=== PATIENT | male | born 1950 | race Caucasian/White ===

== ENCOUNTER → 2017-09-23 | Outpatient (REF) | payer MEDICARE, OTHER ==
[2017-09-23 15:05] LABS: HEPATITIS C VIRUS ABY INDEX < 0.0 INDEX (<0.8)
== END ==
LOC: M LAB REF 13:15
DX: Z11.59 Encounter for screening for other viral diseases (principal)
CPT/HCPCS: 86803

== ENCOUNTER 2017-12-06 12:44 | Day surgery (SDC) | payer MEDICARE, OTHER ==
[2017-12-06] MEDS ORDERED: ROPIvacaine 0.5% 30 ML INJECTION (J2795 PER 1MG) (12:45)
[2017-12-06] MEDS ORDERED: LIDOCAINE 1% MDV 20ML VIAL (12:45)
[2017-12-06] MEDS ORDERED: dexameTHASONE 10 MG/1 ML VIAL PRES.FREE (J1100) (12:45)
[2017-12-06] MEDS: LR 1,000 ML IV (13:14)
[2017-12-06] MEDS ORDERED: PROPOFOL 200 MG/20 ML VIAL As Ordered ×2 (13:18→18:33)
[2017-12-06] MEDS ORDERED: ROCURONIUM BROMIDE 50 MG/5 ML VIAL As Ordered (13:18)
[2017-12-06] MEDS ORDERED: LIDOCAINE 2% INJ 100 MG/5 ML SDV (FOR ANES.) As Ordered (13:18)
[2017-12-06] MEDS ORDERED: fentaNYL 100 MCG/2 ML INJECTION (J3010) As Ordered ×2 (13:53→15:51)
[2017-12-06] MEDS ORDERED: MIDAZOLAM INJ 2 MG/2 ML VIAL (J2250) As Ordered (13:53)
[2017-12-06] MEDS: VANCOMYCIN HCL 1,000 MG, VIAL MATE ADAPTER 1 EACH in D5W 250 ML IV (14:01)
[2017-12-06] MEDS: MIDAZOLAM INJ 2 MG/2 ML VIAL (J2250) IV (14:49)
[2017-12-06] MEDS: fentaNYL 100 MCG/2 ML INJECTION (J3010) IV (14:49)
[2017-12-06] MEDS ORDERED: ePHEDrine SULFATE 25 MG/5 ML(5MG/ML) SYRINGE As Ordered (16:19)
[2017-12-06] MEDS ORDERED: METOCLOPRAMIDE INJ 10MG/2ML VIAL (J2765) As Ordered (16:20)
[2017-12-06] MEDS ORDERED: GLYCOPYRROLATE INJ 0.2 MG/ML 2 ML VIAL As Ordered ×2 (16:32→16:52)
[2017-12-06] MEDS ORDERED: PHENYLephrine HCL 500 MCG/5 ML (100MCG/ML) SYRINGE (J2370) As Ordered (16:41)
[2017-12-06] MEDS ORDERED: PHENYLEPHRINE INJ 10MG/ML VIAL (J2370) As Ordered (16:45)
[2017-12-06] MEDS ORDERED: ONDANSETRON 4MG/2ML VIAL (J2405) As Ordered (16:52)
[2017-12-06] MEDS ORDERED: NEOSTIGMINE 10 MG/10 ML VIAL (J2710) As Ordered ×2 (16:52)
[2017-12-06] MEDS: EPINEPHrine 1MG/ML INJ 30ML MD-VIAL As Ordered (17:59)
[2017-12-06] MEDS: LIDOCAINE 1% SDV INJ 30 ML VIAL As Ordered (18:00)
[2017-12-06] MEDS ORDERED: fentaNYL 100 MCG/2 ML INJECTION (J3010) IV (19:15)
[2017-12-06] MEDS ORDERED: HYDROmorphone HCL 1 MG/ML SYRINGE (J1170) IV (19:15)
[2017-12-06] MEDS ORDERED: LR 1,000 ML IV ×2 (19:15→19:30)
[2017-12-06] MEDS ORDERED: ONDANSETRON 4MG/2ML VIAL (J2405) IV (19:15)
[2017-12-06] MEDS: PERCOCET 5MG/325MG TAB PO ×2 (19:30→20:04)
== END 2017-12-06 21:08 | disposition home or self-care (01) ==
LOC: M SDC 12:44
DX: M75.101 Unspecified rotator cuff tear or rupture of right shoulder, not specified as traumatic (principal); M19.011 Primary osteoarthritis, right shoulder; S43.431A Superior glenoid labrum lesion of right shoulder, initial encounter; I10 Essential (primary) hypertension; E78.00 Pure hypercholesterolemia, unspecified; M48.061 Spinal stenosis, lumbar region without neurogenic claudication; M54.2 Cervicalgia; Z88.0 Allergy status to penicillin; Z88.5 Allergy status to narcotic agent; Z79.82 Long term (current) use of aspirin; Z79.899 Other long term (current) drug therapy
CPT/HCPCS: 29827

== ENCOUNTER 2018-07-27 07:43 | Day surgery (SDC) | payer MEDICARE, OTHER ==
[~2018-07-27] VITALS: Ht 177.8 cm; Wt 99.8 kg
[~2018-07-27 07:43] MED LIST: /WARF25TA OR; ACET65TA OR; ALEV220T26 PO; ALEVE PO; AMIT25TA2 OR; AMIT50TA PO; ASPI1TAB PO; ASPI81TA83 OR; ATOR1TAB21 PO; CALCIUM CITRATE PO; COLA100C2 OR; FERR325T OR; FISH1200 PO; FISH500C OR; LISI-538 PO; LISI10TA4 PO; MULT1TAB10 PO; MULTIVIT PO; NS 1,000 ML IV ONE; OXYC10TA97 OR; PERC7.5T8 OR; SENO8.6T5 OR; TRAM50TA2 OR; TRAM50TA2 PO; VICODINES TAB OR
[2018-07-27] MEDS ORDERED: PROPOFOL 200 MG/20 ML VIAL As Ordered ONE (07:46)
--- NOTE | 2018-07-27 08:49 | ROOR ---
Patient Name: Joleen James Procedure Date: 07/27/2018 8:29 AM Date of : 1950 Age: 68 Room: [facility] Gender: Male Note Status: Finalized Procedure: Colonoscopy Indications: High risk colon cancer surveillance: Personal history of colonic polyps, Last colonoscopy: May 2012 Providers: Jarred LEI MD Referring MD: Josiah Velasquez MD Requesting Provider: Medicines: Monitored Anesthesia Care Complications: No immediate complications. Procedure: Pre-Anesthesia Assessment: - The heart rate, respiratory rate, oxygen saturations, blood pressure, adequacy of pulmonary ventilation, and response to care were monitored throughout the procedure. The Colonoscope was introduced through the anus and advanced to the terminal ileum, with identification of the appendiceal orifice and IC valve. The colonoscopy was performed without difficulty. The patient tolerated the procedure well. The quality of the bowel preparation was good. Findings: The perianal and digital rectal examinations were normal. Two flat polyps were found in the hepatic flexure and ascending colon. The polyps were 5 to 9 mm in size. These polyps were removed with a cold snare. Resection and retrieval were complete. Internal hemorrhoids were found during retroflexion. The hemorrhoids were moderate. The exam was otherwise without abnormality on direct and retroflexion views. Retroflexion in the right colon was performed. Impression: - Two 5 to 9 mm polyps at the hepatic flexure and in the ascending colon, removed with a cold snare. Resected and retrieved. - Internal hemorrhoids. - The examination was otherwise normal on direct and retroflexion views. Recommendation: - Repeat colonoscopy in 5 years for adenoma surveillance. Jarred Lei MD Jarred LEI MD 07/27/2018 8:49:06 AM This report has been signed electronically. Number of Addenda: 0 Note Initiated On: 07/27/2018 8:29 AM Estimated Blood Loss: Estimated blood loss: none.
[2018-07-27 09:15] VITALS: BP 133/83
== END 2018-07-27 09:25 | disposition home or self-care (01) ==
LOC: M OPP 07:43
PROVIDERS: ATTEND Internal Medicine Gastroenterology
DX: D12.2 Benign neoplasm of ascending colon (principal); D12.3 Benign neoplasm of transverse colon; K64.8 Other hemorrhoids; Z86.010 Personal history of colon polyps

== ENCOUNTER → 2018-11-23 | Outpatient (REF) | payer MEDICARE, OTHER ==
[~2018-11-23] MED LIST changes: -/WARF25TA OR; -ASPI1TAB PO; +ASPI81TA26 PO; +COUM1TAB18 OR; -NS 1,000 ML IV ONE
[2018-11-23 12:47] LABS: BLOOD UREA NITROGEN 19 MG/DL (7-18); CREATININE FOR GFR 1.03 MG/DL (0.70-1.30); GLOMERULAR FILTRATION RATE > 60.0 (>42)
== END ==
LOC: M LABDRAW1 11:45
PROVIDERS: ATTEND Orthopaedic Surgery
DX: Z01.812 Encounter for preprocedural laboratory examination (principal)

== ENCOUNTER 2019-05-03 11:34 | Day surgery (SDC) | payer MEDICARE, OTHER ==
[~2019-05-03] VITALS: Ht 177.8 cm; Wt 98.9 kg
[~2019-05-03 11:34] MED LIST changes: +LIDOCAINE 1% MDV 20ML VIAL SQ PRN; +MULTCAP PO; +NAPR220C24 PO
[2019-05-03] MEDS ORDERED: LIDOCAINE 1% MDV 20ML VIAL ONE (11:35)
[2019-05-03] MEDS ORDERED: ROPIvacaine 0.5% 30 ML INJECTION (J2795 PER 1MG) ONE (11:35)
[2019-05-03] MEDS ORDERED: EPINEPHrine INJ 1 MG/ML 1ML VIAL ONE (11:35)
[2019-05-03] MEDS ORDERED: dexameTHASONE 10 MG/1 ML VIAL PRES.FREE (J1100) ONE (11:35)
[2019-05-03] MEDS ORDERED: LR 1,000 ML IV ONE (12:00)
[2019-05-03] MEDS ORDERED: ceFAZolin SOD 2 GM in IV 1 EA IV ONE (12:00)
[2019-05-03] MEDS ORDERED: fentaNYL 100 MCG/2 ML INJECTION (J3010) As Ordered ONE ×2 (13:26→15:25)
[2019-05-03] MEDS ORDERED: MIDAZOLAM INJ 2 MG/2 ML VIAL (J2250) As Ordered ONE ×2 (13:26→15:25)
[2019-05-03] MEDS ORDERED: fentaNYL 100 MCG/2 ML INJECTION (J3010) IV ONE (14:15)
[2019-05-03] MEDS ORDERED: MIDAZOLAM INJ 2 MG/2 ML VIAL (J2250) IV ONE (14:15)
[2019-05-03] MEDS ORDERED: EPINEPHrine 1MG/ML INJ 30ML MD-VIAL As Ordered ONE (14:44)
[2019-05-03] MEDS ORDERED: LIDOCAINE 1% SDV INJ 30 ML VIAL As Ordered ONE (14:45)
[2019-05-03] MEDS ORDERED: propofoL 200 MG/20 ML VIAL As Ordered ONE (15:25)
[2019-05-03] MEDS ORDERED: ROCURONIUM BROMIDE 50 MG/5 ML VIAL As Ordered ONE (15:25)
[2019-05-03] MEDS ORDERED: LIDOCAINE 2% INJ 100 MG/5 ML SDV (FOR ANES.) As Ordered ONE (15:25)
[2019-05-03] MEDS ORDERED: dexameTHASONE 4 MG/ML 1ML VIAL (J1100) As Ordered ONE (15:29)
[2019-05-03] MEDS ORDERED: ONDANSETRON 4MG/2ML VIAL (J2405) As Ordered ONE (15:59)
[2019-05-03] MEDS ORDERED: SUGAMMADEX SODIUM 500 MG/5 ML VIAL (BRIDION) As Ordered ONE (16:08)
[2019-05-03] MEDS ORDERED: LR 1,000 ML IV SCH (17:00)
[2019-05-03] MEDS ORDERED: ONDANSETRON 4MG/2ML VIAL (J2405) IV PRN (17:00)
[2019-05-03] MEDS ORDERED: fentaNYL 100 MCG/2 ML INJECTION (J3010) IV PRN (17:00)
[2019-05-03] MEDS ORDERED: hydrALAZINE INJ 20 MG/ML VIAL IV PRN (17:00)
[2019-05-03] MEDS ORDERED: LABETALOL HCL 100 MG/20 ML VIAL IV PRN (17:00)
[2019-05-03] MEDS ORDERED: oxyCODONE 5MG TAB PO PRN (17:00)
[2019-05-03 18:09] VITALS: BP 167/78
--- NOTE | 2019-05-04 07:47 | RO ---
DATE OF PROCEDURE: 05/03/2019 PREOPERATIVE DIAGNOSIS: 1. Right shoulder partial thickness subscapularis tear. POSTOPERATIVE DIAGNOSIS: 1. Right shoulder partial thickness subscapularis tear. 2. Right shoulder labral tear. PROCEDURE: 1. Right shoulder arthroscopic rotator cuff repair (subscapularis). 2. Right shoulder arthroscopic labral debridement. SURGEON: Dr. Issac Duffy [employer] REPRESENTATIVE: ENRIQUE Jones ANESTHESIA: General with preoperative nerve block. IV FLUIDS: Lactated Ringer's. ESTIMATED BLOOD LOSS: 5 mL. IMPLANTS: Arthrex 4.75 mm Peak SwiveLock anchor times one. CLOSURE: Nylon. PROCEDURE: Patient identified in preoperative holding area. The right shoulder was marked by myself. He had an interscalene nerve block by anesthesia. He is brought to the operating room, placed supine on a well-padded operating room (OR) table. After induction general anesthesia and examination revealed 170 degrees of forward flexion 80 of external rotation with his arm at his side and no increased anterior-posterior translation. The patient was then placed into the left side down lateral decubitus position with an axillary roll and all bony prominences well padded. The right arm was placed into the Arthrex star sleeve lateral decubitus traction shanks 10 pounds of traction. He was secured the OR table. He had bilateral Venodyne boots for deep venous thrombosis (DVT) prophylaxis. He received appropriate IV antibiotics within 1 hour of incision. The right shoulder was then prepped and draped in a normal sterile fashion with Chloraprep. Prior to incision time-out performed per hospital protocol. Alex Solis was present for the entire procedure and participated in all essential portions of the procedure. This included patient positioning and draping, holding arthroscope, retrieving sutures, using the mallet to help create a socket for the anchor, performing the wound closure and applying dressing and sling. The right shoulder was insufflated with lactated Ringer's. A standard posterior viewing portal made with 11-blade. 30 degrees arthroscope was introduced into the joint. 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 Overall chondral surfaces were in great condition. The posterior rotator cuff was intact. The site of the prior supraspinatus repair appeared fully intact with no areas of free tearing. No sutures were visible. On first glance the subscapularis appeared intact but after performing the posterior lever push maneuver the entire subscapularis lifted off from the lesser tuberosity consistent with fairly high-grade upper border tear. The patient had already had a tenotomy of his biceps with a tenodesis. There was labral tearing of the anterior superior labrum so that was debrided with the shaver via an anterior working portal. I created an accessory superolateral portal and then used the shaver to clear soft tissue off the lesser tuberosity and then on the bur setting to gently decorticate create a bleeding surface to improve healing. I then used the scorpion to pass fiber tape through the upper one third of the subscapularis tendon. Those sutures were retrieved out the original anterior portal, loaded through 4.75 mm Peak SwiveLock anchor and then an awl was used to create a socket lesser tuberosity. The anchor was docked, sutures tensioned, anchor malleted and then inserted by hand with excellent fixation. This nicely restored the subscapularis to the lesser tuberosity. There was no lift off. After the sutures were cut with the arthroscopic round cutter operator the repair site was probed with a switching stick and there was a nice secure repair. The shoulder was irrigated. The scope was placed into the subacromial space, a lateral working portal established and bursectomy performed. There was some fraying of the bursal surface of the supraspinatus, a gentle debridement with the shaver was performed. I palpated the entire supraspinatus with a switching stick did not feel that there are any areas of moderate or high-grade tearing and gently internally and externally rotated the arm. There is no lift off or buckling. No loose suture was visible. Some adhesions were released with the radiofrequency cautery between the anterior acromion and the supraspinatus tendon. There was no recurrent impingement. The shoulder was then irrigated and drained. Portals closed with nylon suture. Bulky sterile dressing applied. He was then carefully placed into his R-2 sling and extubated, transferred to post-anesthesia care unit (PACU) in stable condition. All counts were correct times two. COMPLICATIONS: None.
== END 2019-05-03 18:10 | disposition home or self-care (01) ==
LOC: M SDC 11:34
PROVIDERS: ATTEND Orthopaedic Surgery
DX: M75.111 Incomplete rotator cuff tear or rupture of right shoulder, not specified as traumatic (principal); S43.431A Superior glenoid labrum lesion of right shoulder, initial encounter; Y92.89 Other specified places as the place of occurrence of the external cause; I10 Essential (primary) hypertension; E78.5 Hyperlipidemia, unspecified; E73.9 Lactose intolerance, unspecified; Z79.82 Long term (current) use of aspirin; Z79.899 Other long term (current) drug therapy; Z88.0 Allergy status to penicillin; Z88.5 Allergy status to narcotic agent; Y93.9 Activity, unspecified
CPT/HCPCS: 29822; 29827; C1713; J0690; J1100; J2250; J2405; J2795; J3010

== ENCOUNTER → 2021-05-14 | Outpatient (CLI) | payer MEDICARE, OTHER ==
[~2021-05-14] MED LIST changes: -LIDOCAINE 1% MDV 20ML VIAL SQ PRN; -LISI-538 PO; +LISI10TA22 PO; -LISI10TA4 PO; +LISI20TA33 PO
--- NOTE | 2021-05-17 15:12 | HOLTMON ---
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 Artifact duration 2 hours 24 minutes 29 seconds. Predominantly sinus rhythm with heart rates ranging from 48-129 bpm; average 76 bpm. No atrial fibrillation observed. Infrequent PACs including rare atrial couplets and rare atrial trigeminy and one nonsustained atrial run (4 beats, 112 bpm). Occasional PVCs including 35 couplets and 1 ventricular bigeminy run. No RR intervals greater than 2.0 seconds. No symptoms recorded. Electronically Signed on 05-17-2021 15:12:29 EDT by Jarred Kearns
== END ==
LOC: M EKG 11:46
PROVIDERS: ATTEND Family Medicine
DX: R94.31 Abnormal electrocardiogram [ECG] [EKG] (principal)

== ENCOUNTER → 2022-01-18 | Outpatient (REF) | payer MEDICARE, OTHER ==
[2022-01-19 12:48] LABS: BASO # 0.2 10^3/uL (0.0-0.2); BASO % 2.5 % (0.0-1.0); EOS % 13.6 % (0.0-3.0); HEMATOCRIT 33.8 % (42.0-52.0); HEMOGLOBIN 10.5 g/dl (13.5-17.5); LYMPH # 1.7 10^3/uL (1.5-5.0); MEAN CORPUSCULAR HEMOGLOBIN 30.1 pg (27.0-33.0); MEAN CORPUSCULAR HGB CONC 31.1 g/dl (32.0-36.5); MEAN CORPUSCULAR VOLUME 96.8 fl (80.0-96.0); MONO # 0.5 10^3/uL (0.0-0.8); MONO % 6.5 % (2.0-8.0); NEUTROPHILS # 4.2 10^3/uL (1.5-8.5); NEUTROPHILS % 54.7 % (36.0-66.0); PLATELET COUNT, AUTOMATED 296 10^3/uL (150-450); RED BLOOD COUNT 3.49 10^6/uL (4.30-6.10); WHITE BLOOD COUNT 7.6 10^3/uL (4.0-10.0)
[2022-01-19 12:55] LABS: ALT/SGPT 29 U/L (12-78); BILIRUBIN,TOTAL 0.2 MG/DL (0.2-1.0); BLOOD UREA NITROGEN 18 MG/DL (7-18); C REACTIVE PROTEIN QUANTITATIV 0.73 MG/DL (0.00-0.30); CALCIUM LEVEL 8.7 MG/DL (8.8-10.2); CARBON DIOXIDE LEVEL 29 MEQ/L (21-32); CHLORIDE LEVEL 110 MEQ/L (98-107); CREATININE FOR GFR 1.03 MG/DL (0.70-1.30); GLOMERULAR FILTRATION RATE > 60.0 (>42); GLUCOSE, FASTING 94 MG/DL (70-100); POTASSIUM SERUM 4.1 MEQ/L (3.5-5.1); SODIUM LEVEL 141 MEQ/L (136-145)
[2022-01-19 13:19] LABS: ERYTHROCYTE SEDIMENTATION RATE 25 mm/hr (0-20)
== END ==
LOC: M LAB REF 12:30
PROVIDERS: ATTEND Orthopaedic Surgery
DX: T84.51XA Infection and inflammatory reaction due to internal right hip prosthesis, initial encounter (principal); Y83.1 Surgical operation with implant of artificial internal device as the cause of abnormal reaction of the patient, or of later complication, without mention of misadventure at the time of the procedure; Z96.641 Presence of right artificial hip joint

== ENCOUNTER → 2022-05-13 | Outpatient (CLI) | payer MEDICARE, OTHER ==
[2022-05-13 12:59] LABS: BASO # 0.1 10^3/uL (0.0-0.2); BASO % 0.9 % (0.0-1.0); EOS # 0.1 10^3/uL (0.0-0.5); EOS % 0.8 % (0.0-3.0); HEMATOCRIT 41.8 % (42.0-52.0); HEMOGLOBIN 13.3 g/dl (13.5-17.5); LYMPH # 1.8 10^3/uL (1.5-5.0); LYMPH % 17.4 % (24.0-44.0); MEAN CORPUSCULAR HEMOGLOBIN 30.9 pg (27.0-33.0); MEAN CORPUSCULAR HGB CONC 31.8 g/dl (32.0-36.5); MONO # 1.3 10^3/uL (0.0-0.8); MONO % 12.4 % (2.0-8.0); NEUTROPHILS # 6.9 10^3/uL (1.5-8.5); PLATELET COUNT, AUTOMATED 366 10^3/uL (150-450); RED BLOOD COUNT 4.31 10^6/uL (4.30-6.10); WHITE BLOOD COUNT 10.2 10^3/uL (4.0-10.0)
[2022-05-13 13:32] LABS: ERYTHROCYTE SEDIMENTATION RATE 62 mm/hr (0-20)
[2022-05-13 13:44] LABS: ALT/SGPT 44 U/L (12-78); BILIRUBIN,TOTAL 0.5 MG/DL (0.2-1.0); BLOOD UREA NITROGEN 15 MG/DL (7-18); CALCIUM LEVEL 9.1 MG/DL (8.8-10.2); CARBON DIOXIDE LEVEL 27 MEQ/L (21-32); CHLORIDE LEVEL 103 MEQ/L (98-107); FREE T4 1.05 NG/DL (0.76-1.46); GLOMERULAR FILTRATION RATE > 60.0 (>42); GLUCOSE, FASTING 115 MG/DL (70-100); POTASSIUM SERUM 4.3 MEQ/L (3.5-5.1); SODIUM LEVEL 139 MEQ/L (136-145); THYROID STIMULATING HORMONE 0.645 uIU/ML (0.358-3.740)
== END ==
LOC: M WUC 10:15
PROVIDERS: ATTEND Physician Assistant
DX: R50.9 Fever, unspecified (principal); R53.83 Other fatigue

== ENCOUNTER → 2022-06-15 | Outpatient (REF) | payer MEDICARE, OTHER | LOC: M LAB REF 11:19 | PROVIDERS: ATTEND Family Medicine | DX: M25.561 Pain in right knee (principal); M25.551 Pain in right hip ==

== ENCOUNTER → 2022-06-24 | Outpatient (CLI) | payer MEDICARE, OTHER | LOC: M LAB 11:03 | PROVIDERS: ATTEND Orthopaedic Surgery | DX: M89.8X5 Other specified disorders of bone, thigh (principal); M25.551 Pain in right hip ==

== ENCOUNTER → 2022-07-09 | Outpatient (CLI) | payer MEDICARE, OTHER | LOC: M LAB 08:52 | PROVIDERS: ATTEND Orthopaedic Surgery | DX: M89.8X5 Other specified disorders of bone, thigh (principal); M25.551 Pain in right hip ==

== ENCOUNTER → 2022-07-22 | Outpatient (CLI) | payer MEDICARE, OTHER | LOC: M LAB 13:29 | PROVIDERS: ATTEND Orthopaedic Surgery | DX: M89.8X5 Other specified disorders of bone, thigh (principal); M25.551 Pain in right hip ==

== ENCOUNTER → 2022-08-05 | Outpatient (CLI) | payer MEDICARE, OTHER | LOC: M LAB 09:14 | PROVIDERS: ATTEND Orthopaedic Surgery | DX: M89.8X5 Other specified disorders of bone, thigh (principal); M25.551 Pain in right hip ==

== ENCOUNTER → 2022-08-19 | Outpatient (CLI) | payer MEDICARE, OTHER | LOC: M LAB 10:19 | PROVIDERS: ATTEND Orthopaedic Surgery | DX: M89.8X5 Other specified disorders of bone, thigh (principal); M25.551 Pain in right hip ==

== ENCOUNTER → 2022-09-24 | Outpatient (CLI) | payer MEDICARE, OTHER | LOC: M LAB 10:01 | PROVIDERS: ATTEND Family Medicine | DX: M25.551 Pain in right hip (principal); M25.561 Pain in right knee ==

== ENCOUNTER → 2022-10-04 | Outpatient (REF) | payer MEDICARE, OTHER | LOC: M LAB REF 12:02 | PROVIDERS: ATTEND Family Medicine | DX: M48.07 Spinal stenosis, lumbosacral region (principal); G89.29 Other chronic pain ==

== ENCOUNTER → 2022-11-16 | Outpatient (CLI) | payer MEDICARE, OTHER | LOC: M LAB 10:07 | PROVIDERS: ATTEND Orthopaedic Surgery | DX: M89.8X5 Other specified disorders of bone, thigh (principal); M25.551 Pain in right hip ==

== ENCOUNTER → 2022-12-14 | Outpatient (CLI) | payer MEDICARE, OTHER | LOC: M LAB 10:49 | PROVIDERS: ATTEND Orthopaedic Surgery | DX: M25.559 Pain in unspecified hip (principal); Z96.649 Presence of unspecified artificial hip joint ==

== ENCOUNTER → 2022-12-21 | Outpatient (CLI) | payer MEDICARE, OTHER ==
[2022-12-21 12:01] LABS: BLOOD UREA NITROGEN 21 MG/DL (9-23); CREATININE FOR GFR 0.95 MG/DL (0.70-1.30); GLOMERULAR FILTRATION RATE > 60.0 (>42)
== END ==
LOC: M LAB 10:35
PROVIDERS: ATTEND Orthopaedic Surgery
DX: M54.50 Low back pain, unspecified (principal)

== ENCOUNTER → 2022-12-28 | Outpatient (CLI) | payer MEDICARE, OTHER | LOC: M LAB 10:58 | PROVIDERS: ATTEND Orthopaedic Surgery | DX: M25.559 Pain in unspecified hip (principal); Z96.649 Presence of unspecified artificial hip joint ==

== ENCOUNTER → 2023-01-11 | Outpatient (CLI) | payer MEDICARE, OTHER | LOC: M LAB 16:10 | PROVIDERS: ATTEND Family Medicine | DX: M25.559 Pain in unspecified hip (principal); Z96.649 Presence of unspecified artificial hip joint ==

== ENCOUNTER → 2023-02-08 | Outpatient (CLI) | payer MEDICARE, OTHER | LOC: M LAB 10:48 | PROVIDERS: ATTEND Orthopaedic Surgery | DX: M25.551 Pain in right hip (principal) ==

== ENCOUNTER → 2023-03-08 | Outpatient (CLI) | payer MEDICARE, OTHER | LOC: M LAB 10:03 | PROVIDERS: ATTEND Orthopaedic Surgery | DX: M25.551 Pain in right hip (principal); Z96.649 Presence of unspecified artificial hip joint ==

== ENCOUNTER → 2023-04-12 | Outpatient (CLI) | payer MEDICARE, OTHER | LOC: M LAB 10:30 | PROVIDERS: ATTEND Orthopaedic Surgery | DX: M25.551 Pain in right hip (principal); Z96.649 Presence of unspecified artificial hip joint ==

== ENCOUNTER → 2023-04-12 | Outpatient (CLI) | payer MEDICARE, OTHER ==
[2023-04-12 11:00] LABS: BASO # 0.1 10^3/uL (0.0-0.2); BASO % 1.3 % (0.0-1.0); EOS # 0.2 10^3/uL (0.0-0.5); HEMATOCRIT 43.4 % (42.0-52.0); HEMOGLOBIN 14.3 g/dl (13.5-17.5); LYMPH # 1.7 10^3/uL (1.5-5.0); LYMPH % 22.5 % (24.0-44.0); MEAN CORPUSCULAR HEMOGLOBIN 31.3 pg (27.0-33.0); MEAN CORPUSCULAR HGB CONC 32.9 g/dl (32.0-36.5); MONO # 0.6 10^3/uL (0.0-0.8); MONO % 7.3 % (2.0-8.0); NEUTROPHILS # 5.1 10^3/uL (1.5-8.5); NEUTROPHILS % 66.6 % (36.0-66.0); PLATELET COUNT, AUTOMATED 217 10^3/uL (150-450); RED BLOOD COUNT 4.57 10^6/uL (4.30-6.10); WHITE BLOOD COUNT 7.6 10^3/uL (4.0-10.0)
[2023-04-12 11:30] LABS: ALBUMIN 3.9 G/DL (3.2-5.2); ALKALINE PHOSPHATASE 71 U/L (46-116); ALT/SGPT 25 U/L (7.0-40); AST/SGOT 20 U/L (<34); BILIRUBIN,TOTAL 0.5 MG/DL (0.3-1.2); BLOOD UREA NITROGEN 18 MG/DL (9-23); CALCIUM LEVEL 9.4 MG/DL (8.3-10.6); CARBON DIOXIDE LEVEL 28 MMOL/L (20-31); CHLORIDE LEVEL 106 MMOL/L (98-107); CREATININE FOR GFR 1.13 MG/DL (0.70-1.30); GLOMERULAR FILTRATION RATE > 60.0 (>42); GLUCOSE, FASTING 99 MG/DL (74-106); POTASSIUM SERUM 4.5 MMOL/L (3.5-5.1); SODIUM LEVEL 141 MMOL/L (136-145); TOTAL PROTEIN 6.8 G/DL (5.7-8.2)
== END ==
LOC: M LAB 10:27
PROVIDERS: ATTEND Family Medicine
DX: M25.551 Pain in right hip (principal); I10 Essential (primary) hypertension; Z96.649 Presence of unspecified artificial hip joint

== ENCOUNTER → 2023-06-14 | Outpatient (CLI) | payer MEDICARE, OTHER | LOC: M LAB 10:03 | PROVIDERS: ATTEND Family Medicine | DX: G89.29 Other chronic pain (principal); M25.559 Pain in unspecified hip; Z96.649 Presence of unspecified artificial hip joint ==

== ENCOUNTER → 2023-06-14 | Outpatient (CLI) | payer MEDICARE, OTHER | LOC: M LAB 09:01 | PROVIDERS: ATTEND Orthopaedic Surgery | DX: M25.559 Pain in unspecified hip (principal); Z96.649 Presence of unspecified artificial hip joint ==

== ENCOUNTER → 2023-07-12 | Outpatient (CLI) | payer MEDICARE, OTHER | LOC: M LAB 11:58 | PROVIDERS: ATTEND Orthopaedic Surgery | DX: M25.551 Pain in right hip (principal) ==

== ENCOUNTER → 2023-08-11 | Outpatient (CLI) | payer MEDICARE, OTHER | LOC: M LAB 10:02 | PROVIDERS: ATTEND Orthopaedic Surgery | DX: M25.559 Pain in unspecified hip (principal); T84.51XA Infection and inflammatory reaction due to internal right hip prosthesis, initial encounter; Z96.649 Presence of unspecified artificial hip joint ==

== ENCOUNTER → 2023-09-13 | Outpatient (CLI) | payer MEDICARE, OTHER | LOC: M LAB 10:36 | PROVIDERS: ATTEND Orthopaedic Surgery | DX: M25.559 Pain in unspecified hip (principal); Z96.649 Presence of unspecified artificial hip joint; T84.51XA Infection and inflammatory reaction due to internal right hip prosthesis, initial encounter ==

== ENCOUNTER → 2023-10-11 | Outpatient (CLI) | payer MEDICARE, OTHER | LOC: M LAB 10:00 | PROVIDERS: ATTEND Orthopaedic Surgery | DX: M25.559 Pain in unspecified hip (principal) ==

== ENCOUNTER → 2023-11-09 | Outpatient (CLI) | payer MEDICARE, OTHER | LOC: M LAB 10:47 | PROVIDERS: ATTEND Orthopaedic Surgery | DX: M25.559 Pain in unspecified hip (principal); Z96.649 Presence of unspecified artificial hip joint ==

== ENCOUNTER 2024-03-06 06:54 | Day surgery (SDC) | payer MEDICARE, OTHER ==
[~2024-03-06] VITALS: Ht 175.3 cm; Wt 96.2 kg
[~2024-03-06 06:54] MED LIST changes: +MULTTAB61 PO; +PREG100C2 PO; +TAMS1CAP17 PO
[2024-03-06] MEDS: NS 1,000 ML IV SCH (07:07)
[2024-03-06] MEDS ORDERED: LIDOCAINE 2% 100MG/5ML SDV (FOR ANES.) As Ordered ONE (07:24)
[2024-03-06] MEDS ORDERED: propofoL 200 MG/20 ML VIAL As Ordered ONE (07:24)
[2024-03-06 08:20] VITALS: BP 124/70; TEMP 98.2; O2SAT 95
== END 2024-03-06 08:24 | disposition home or self-care (01) ==
LOC: M OPP 06:54
PROVIDERS: ATTEND Internal Medicine Gastroenterology
DX: Z12.11 Encounter for screening for malignant neoplasm of colon (principal); Z86.010 Personal history of colon polyps; D12.6 Benign neoplasm of colon, unspecified; K63.5 Polyp of colon; K64.8 Other hemorrhoids; I10 Essential (primary) hypertension; Z79.02 Long term (current) use of antithrombotics/antiplatelets; Z79.1 Long term (current) use of non-steroidal anti-inflammatories (NSAID); Z79.891 Long term (current) use of opiate analgesic; Z79.899 Other long term (current) drug therapy; Z88.0 Allergy status to penicillin; Z88.5 Allergy status to narcotic agent; Z91.011 Allergy to milk products

== ENCOUNTER → 2024-07-06 | Outpatient (CLI) | payer MEDICARE, OTHER | LOC: M WUC 13:40 | PROVIDERS: ATTEND Family Medicine | DX: R05.9 Cough, unspecified (principal) ==

== ENCOUNTER → 2024-08-24 | Outpatient (REF) | payer MEDICARE, OTHER | LOC: M LAB REF 12:26 | PROVIDERS: ATTEND Family Medicine | DX: G89.29 Other chronic pain (principal); M25.561 Pain in right knee ==

== ENCOUNTER → 2024-10-18 | Outpatient (CLI) | payer MEDICARE, OTHER | LOC: M RAD 12:58 | PROVIDERS: ATTEND Urology | DX: N40.1 Benign prostatic hyperplasia with lower urinary tract symptoms (principal); R31.9 Hematuria, unspecified; R35.1 Nocturia ==

== ENCOUNTER → 2025-05-06 | Outpatient (CLI) | payer MEDICARE, OTHER ==
[2025-05-06 08:46] LABS: CALCIUM LEVEL 9.2 MG/DL (8.3-10.6); CARBON DIOXIDE LEVEL 29.0 MMOL/L (20-31); CHLORIDE LEVEL 108.0 MMOL/L (98-107); CREATININE FOR GFR 1.04 MG/DL (0.70-1.30); GLOMERULAR FILTRATION RATE 74.0 (>42); PHOSPHORUS LEVEL 2.9 MG/DL (2.4-5.1); POTASSIUM SERUM 4.2 MMOL/L (3.5-5.1); SODIUM LEVEL 145.0 MMOL/L (136-145)
== END ==
LOC: M LAB 07:06
PROVIDERS: ATTEND Nurse Practitioner Family
DX: M96.1 Postlaminectomy syndrome, not elsewhere classified (principal)

== ENCOUNTER → 2025-07-07 | Outpatient (CLI) | payer MEDICARE, OTHER ==
[~2025-07-07] MED LIST changes: +CIPR-250 PO; +CIPR250T3 PO; +METR-265 PO; +OXYB10TA23 PO; +PREG150C2 PO
[2025-07-07 11:29] LABS: BASO # 0.1 10^3/uL (0.0-0.2); BASO % 0.4 % (0.0-1.0); EOS # 0.1 10^3/uL (0.0-0.5); EOS % 0.6 % (0.0-3.0); LYMPH # 1.8 10^3/uL (1.5-5.0); LYMPH % 10.1 % (24.0-44.0); MONO # 1.9 10^3/uL (0.0-0.8); MONO % 10.7 % (2.0-8.0); NEUTROPHILS # 13.9 10^3/uL (1.5-8.5); NEUTROPHILS % 77.9 % (36.0-66.0); PLATELET COUNT, AUTOMATED 272 10^3/uL (150-450)
[2025-07-07 11:54] LABS: ALT/SGPT 34.0 U/L (7.0-40); AST/SGOT 32.0 U/L (<34); CALCIUM LEVEL 9.1 MG/DL (8.3-10.6); CARBON DIOXIDE LEVEL 26.0 MMOL/L (20-31); CHLORIDE LEVEL 103.0 MMOL/L (98-107); CREATININE FOR GFR 1.25 MG/DL (0.70-1.30); GLOMERULAR FILTRATION RATE 59.3 (>42); MAGNESIUM LEVEL 1.8 MG/DL (1.8-2.4); POTASSIUM SERUM 4.2 MMOL/L (3.5-5.1); SODIUM LEVEL 139.0 MMOL/L (136-145)
== END ==
LOC: M LAB 11:06
PROVIDERS: ATTEND Registered Nurse
DX: R11.10 Vomiting, unspecified (principal)

== ENCOUNTER 2025-07-08 10:31 | Emergency (ER) | payer MEDICARE, OTHER ==
[~2025-07-08] VITALS: Ht 177.8 cm; Wt 100.4 kg
[~2025-07-08 10:31] MED LIST changes: -CIPR-250 PO; -CIPR250T3 PO; -METR-265 PO; -OXYB10TA23 PO; -PREG150C2 PO
[2025-07-08 11:41] LABS: BASO # 0.1 10^3/uL (0.0-0.2); BASO % 0.3 % (0.0-1.0); EOS # 0.0 10^3/uL (0.0-0.5); EOS % 0.1 % (0.0-3.0); LYMPH # 1.5 10^3/uL (1.5-5.0); LYMPH % 7.3 % (24.0-44.0); MONO # 1.5 10^3/uL (0.0-0.8); MONO % 7.4 % (2.0-8.0); NEUTROPHILS # 17.1 10^3/uL (1.5-8.5); NEUTROPHILS % 84.3 % (36.0-66.0); PLATELET COUNT, AUTOMATED 355 10^3/uL (150-450)
[2025-07-08 12:08] LABS: ALT/SGPT 46.0 U/L (7.0-40); AST/SGOT 42.0 U/L (<34)
[2025-07-08] MEDS ORDERED: ISOVUE-370 76% 100 ML VIAL As Ordered ONE (12:17)
[2025-07-08 12:37] LABS: VENOUS BASE EXCESS -1.2 (-2.0-2.0); VENOUS HCO3 23.2 MMOL/L (23.0-27.0); VENOUS O2 SATURATION 85.0 % (60.0-80.0); VENOUS PARTIAL PRESSURE CO2 38.2 mmHg (38.0-50.0); VENOUS PARTIAL PRESSURE O2 50.0 mmHg (30.0-50.0); VENOUS PH 7.402 UNITS (7.330-7.430); VENOUS STANDARD HCO3 23.2 MMOL/L; VENOUS TOTAL CO2 24.4 MMOL/L (24.0-28.0)
[2025-07-08 13:08] LABS: CK-MB VALUE MASS 1.8 NG/ML (<3.6)
[2025-07-08 13:10] LABS: CPK CREATINE PHOSPHOKINASE 44.0 U/L (46-171); MB/CK RELATIVE INDEX 4.09 (< OR =4)
[2025-07-08 13:59] LABS: ALT/SGPT 34.0 U/L (7.0-40); AST/SGOT 37.0 U/L (<34); C REACTIVE PROTEIN QUANTITATIV 20.83 MG/DL (<1.0); CALCIUM LEVEL 8.5 MG/DL (8.3-10.6); CARBON DIOXIDE LEVEL 23.0 MMOL/L (20-31); CHLORIDE LEVEL 104.0 MMOL/L (98-107); CREATININE FOR GFR 1.37 MG/DL (0.70-1.30); GLOMERULAR FILTRATION RATE 53.1 (>42); POTASSIUM SERUM 4.3 MMOL/L (3.5-5.1); SODIUM LEVEL 141.0 MMOL/L (136-145)
[2025-07-08 14:11] LABS: INR 1.15
[2025-07-08 14:45] LABS: KETONE, URINE AUTO RFX NEGATIVE (NEGATIVE); LEUKOCYTE ESTERASE UR AUTO RFX NEGATIVE (NEGATIVE); NITRITE, URINE AUTO RFX NEGATIVE (NEGATIVE); RBC, URINE AUTO RFX 0 /HPF (0-3); SQUAM EPITHELIAL CELL UR AURFX 0 /HPF (0-6); WBC, URINE AUTO RFX 3 /HPF (0-3)
[2025-07-08] MEDS ORDERED: CIPR250T3 PO (18:54)
[2025-07-08] MEDS ORDERED: PREG150C2 PO (18:54)
[2025-07-08] MEDS ORDERED: OXYB10TA23 PO (18:54)
[2025-07-08] MEDS ORDERED: HOME MED LIST COMPLETE! XX SCH (18:55)
[2025-07-08] MEDS ORDERED: CIPR-250 PO (19:36)
[2025-07-08] MEDS ORDERED: METR-265 PO (19:36)
[2025-07-08] MEDS: CLINDAMYCIN 900 MG in IV 1 EA IV ONE (20:12)
[2025-07-08 21:00] VITALS: BP 129/60; O2SAT 95
[2025-07-08 21:24] VITALS: TEMP 99.7
== END 2025-07-08 21:24 | disposition home or self-care (01) ==
LOC: M ED 10:31
DX: D72.829 Elevated white blood cell count, unspecified (principal); M01.X61 Direct infection of right knee in infectious and parasitic diseases classified elsewhere; T84.53XA Infection and inflammatory reaction due to internal right knee prosthesis, initial encounter; R10.9 Unspecified abdominal pain; I10 Essential (primary) hypertension; E73.9 Lactose intolerance, unspecified; Z79.899 Other long term (current) drug therapy; Z88.0 Allergy status to penicillin; Z88.5 Allergy status to narcotic agent; Z88.8 Allergy status to other drugs, medicaments and biological substances
CPT/HCPCS: 36415; 71045; 73564; 74177; 80047; 80048; 80076; 81001; 82150; 82550; 82553; 82803; 83605; 83690; 84145; 84484; 85025; 85610; 85652; 85730; 86140; 87040; 87486; 87581; 87633; 87798; 93041; 94760; 96365; 99285; J0737; Q9967

== ENCOUNTER → 2025-07-23 | Outpatient (REF) | payer MEDICARE, OTHER ==
[~2025-07-23] MED LIST changes: +CIPR-250 PO; +CIPR250T3 PO; +METR-265 PO; +OXYB10TA23 PO; +PREG150C2 PO
== END ==
LOC: M LAB REF 17:24
PROVIDERS: ATTEND Family Medicine
DX: R10.9 Unspecified abdominal pain (principal)

== ENCOUNTER → 2025-07-30 | Outpatient (CLI) | payer MEDICARE, OTHER ==
[2025-07-30 12:45] LABS: C REACTIVE PROTEIN QUANTITATIV < 0.50 MG/DL (<1.0)
[2025-07-30 12:46] LABS: ALT/SGPT 33 U/L (7.0-40); AST/SGOT 34 U/L (<34); CALCIUM LEVEL 9.0 MG/DL (8.3-10.6); CARBON DIOXIDE LEVEL 29 MMOL/L (20-31); CHLORIDE LEVEL 108 MMOL/L (98-107); CREATININE FOR GFR 1.03 MG/DL (0.70-1.30); GLOMERULAR FILTRATION RATE 74.8 (>42); POTASSIUM SERUM 4.4 MMOL/L (3.5-5.1); SODIUM LEVEL 145 MMOL/L (136-145)
== END ==
LOC: M LAB 11:48
PROVIDERS: ATTEND Family Medicine
DX: I10 Essential (primary) hypertension (principal); E78.00 Pure hypercholesterolemia, unspecified; M48.07 Spinal stenosis, lumbosacral region